=== PATIENT | male | born 1955 | race Two or more races ===

== ENCOUNTER 2021-03-24 07:09 | Day surgery (SDC) | payer OTHER | END 2021-03-24 10:55 | disposition home or self-care (01) | LOC: AMB-ENDOS 07:09 | PROVIDERS: ATTEND Colon & Rectal Surgery | DX: D12.2 Benign neoplasm of ascending colon (principal); D12.3 Benign neoplasm of transverse colon; Z20.822 Contact with and (suspected) exposure to COVID-19; Z12.11 Encounter for screening for malignant neoplasm of colon ==